=== PATIENT | female | born 1995 | race Hispanic/Latino ===

== ENCOUNTER 2018-06-02 10:09 | Emergency (ER) | payer BC, OTHER ==
[2018-06-02 10:40] LABS: #Basophils 0.1 thou/uL (0.0-0.2); #Eosinphils 0.1 thou/uL (0.0-0.7); #Lymphocytes 1.9 thou/uL (1.20-3.40); #Monocytes 0.4 thou/uL (0.11-0.59); #Neutrophils 4.7 thou/uL (1.40-6.50); %Basophils 0.7 % (0.0-1.0); %Eosinophils 0.9 % (0.0-10.0); %Lymphocytes 26.5 % (21.0-51.0); %Monocytes 5.7 % (0.0-10.0); %Neutrophils 66.2 % (42.0-75.0); Hemoglobin 13.9 g/dL (12.0-16.0); Mean Corpuscular HGB CONC 34.4 g/dL (32.0-36.0); Mean Corpuscular Volume 87.1 fL (78.0-98.0); Mean Platelet Volume 7.8 fL (7.4-10.4); Platelet Count 230 thou/uL (130-400); RBC Distribution Width 12.2 % (11.5-14.5); Red Blood Cell (RBC) Count 4.62 mill/uL (4.20-5.40); White Blood Cell (WBC) Count 7.1 thou/uL (4.8-10.8)
[2018-06-02 10:44] LABS: Bilirubin Negative (Negative); Blood, Urine Negative (Negative); Clarity CLOUDY (Clear); Glucose, Urine (Dipstick) Negative (Negative); Leukocyte Large (Negative); Nitrite Negative (Negative); Protein, Urine (Dipstick) Trace mg/dL (Neg-Trace); Specific Gravity, Urine 1.017 (1.002-1.036); pH, Urine 7.5 (5.0-9.0)
[2018-06-02 10:46] LABS: Bacteria/HPF 1+ HPF (None Seen); Hyaline Casts/LPF 0-3 HYALINE CAST LPF (0-3 Hyaline); WBC/HPF 21-50 HPF (0-3)
[2018-06-02] MEDS ORDERED: cefTRIAXone\\ROCEPHIN 1 GM VIAL ONE (11:22)
--- NOTE | 2018-06-02 12:01 | ULT ---
ULTRASOUND OB COMPLETE: History: Positive test. Left sided pelvic pain. Comparison: None. Technique: Real-time grayscale, color doppler, and spectral analysis of the gravid uterus was perform ed via transabdominal approach. FINDINGS: There is a single live intrauterine with average ultrasound age of 13 weeks 0 days with patricia e of delivery 12-08-18. The uterus measures 11.8 x 6.9 x 8.6 cm. Left ovary measures 4.1 x 2.0 x 2.1 c m. heart rate documented at 160 beats/minute. Placenta is anterior and the presentation is breech. Adequate amniotic fluid. Right ovary not seen. IMPRESSION: Single viable intrauterine with age average ultrasound of 13 weeks 0 day, estimated date of delivery 12-08-18. POS: [facility]
[2018-06-02 23:17] LABS: Chlamydia by PCR Not Detected (NotDetected); GC by PCR Not Detected (NotDetected)
== END 2018-06-02 12:48 | disposition home or self-care (01) ==
LOC: ERS 10:09
DX: O20.0 Threatened abortion (principal); Z3A.13 13 weeks gestation of pregnancy; O23.41 Unspecified infection of urinary tract in pregnancy, first trimester
CPT/HCPCS: 36415; 76805; 81003; 81015; 84702; 85025; 86900; 86901; 87086; 87480; 87491; 87510; 87591; 87660; 96374; J0696

== ENCOUNTER 2018-12-04 03:33 | Inpatient (IN) | payer BC, OTHER ==
[2018-12-04] MEDS ORDERED: Lidocaine 1% (PF) 30 ML VIAL SC PRN (04:28)
[2018-12-04] MEDS ORDERED: Misoprostol 200 MCG TAB PR PRN (04:28)
[2018-12-04] MEDS ORDERED: Ibuprofen 800 MG TAB PO PRN (04:28)
[2018-12-04] MEDS ORDERED: Promethazine HCl 25 MG/ML VIAL IM PRN ×2 (04:28→05:09)
[2018-12-04] MEDS ORDERED: Ondansetron PF 4 MG/2 ML Vial IVP PRN ×2 (04:28→05:09)
[2018-12-04] MEDS ORDERED: NS / Oxytocin 40 units/1000ml 1,000 ML IV PRN (04:28)
[2018-12-04] MEDS ORDERED: Methylergonovine 0.2 MG/ML VIAL IM PRN ×2 (04:28→08:44)
[2018-12-04] MEDS ORDERED: HYDROcodone/Acetaminophen 5/325 mg Tablet PO PRN ×4 (04:28→08:44)
[2018-12-04] MEDS ORDERED: Lactated Ringer's 1,000 ML IV SCH (04:30)
[2018-12-04] MEDS ORDERED: NS w/ Oxytocin 10 units 500 ML IV SCH (04:30)
[2018-12-04] MEDS ORDERED: Fentanyl 4 mcg/Bup 0.1% Cadd 100 ML ONE (04:35)
[2018-12-04 04:40] LABS: Hemoglobin 13.8 g/dL (12.0-16.0); Mean Corpuscular HGB CONC 34.5 g/dL (32.0-36.0); Mean Corpuscular Hemoglobin 31.9 pg (27.0-31.0); Mean Corpuscular Volume 92.6 fL (78.0-98.0); Mean Platelet Volume 9.6 fL (7.4-10.4); Platelet Count 168 thou/uL (130-400); RBC Distribution Width 12.3 % (11.5-14.5); Red Blood Cell (RBC) Count 4.32 mill/uL (4.20-5.40); White Blood Cell (WBC) Count 11.1 thou/uL (4.8-10.8)
[2018-12-04] MEDS ORDERED: diphenhydrAMINE 50 MG/ML VIAL IVP PRN (05:09)
[2018-12-04] MEDS ORDERED: Lactated Ringer's 500 ML IV PRN (05:09)
[2018-12-04] MEDS ORDERED: Eucerin (Mineral Oil/Petrolatum,White) 30 gm Jar TOP PRN (05:09)
[2018-12-04] MEDS ORDERED: Acetaminophen 325 MG TAB PO PRN (05:09)
[2018-12-04] MEDS ORDERED: ePHEDrine/0.9% NaCl/PF SYRINGE 50 mg/10 ml SLOW IVP PRN (05:09)
[2018-12-04] MEDS ORDERED: Naloxone HCl 0.4 mg/ml Vial IVP PRN ×2 (05:09)
[2018-12-04] MEDS ORDERED: Communication Order-Pharmacy FS SCH (05:15)
[2018-12-04] MEDS ORDERED: Fentanyl 4 mcg/Bupivacaine 0.1% Cassette 100 ML EPIDURAL SCH (05:15)
[2018-12-04 05:20] LABS: HBSAg Index 0.21 S/CO (0-0.99); Hep B Surf Ag Non-Reactive S/CO (NonReactive)
[2018-12-04 05:21] VITALS: BMI 34.4
[2018-12-04 05:25] LABS: Syphilis Antibody Nonreactive (Nonreactive); Syphilis Antibody Index 0.03 S/CO (<1.00 Non-Reactive)
--- NOTE | 2018-12-04 07:24 | PDOC.LDHP ---
Labor and Delivery H&P Chief complaint: contractions HPI: Started having contractions at midnight and arrived to the hospital around 3am. Reports good movement. Denies LOF, VB> Current gestational age (weeks): 38 Due date: 12/15/18 Dating criteria: first trimester ultrasound (S<D on first trimester us. dating based off us) Grav: 2 Para: 1 OB History Details: 2014 6.5 lbs Current complications: none Past Medical History: Hypothyroidism Current medications: pre- vitamins, other (levothyroxine 125mcg PO QD) Allergies/Adverse Reactions: Allergies Allergy/AdvReac Type Severity Reaction Status Date / Time No Known Allergies Allergy Verified 12/04/18 04:26 Social history: none - Physical Exam Vital signs reviewed and normal: yes General: NAD Heart: RRR Lungs: nonlabored breathing Abdomen: gravid FHT: category 1 [place] contractions every: q2mins - Vaginal Exam cm dilated: 7 Effacement: 100% Station: -1 - OB Labs Blood type: A RH: positive Antibody Screen: negative HIV: negative RPR: negative HEPSAg: negative 1 hour GCT: negative GBS: negative Urine drug screen: negative Rubella: immune - Assessment L&D Assessment: term patient in labor - Plan Plan: admit to L&D (anticipate epidural for pain management.)
--- NOTE | 2018-12-04 07:26 | PDOC.OPDEL ---
OB Operative/Delivery Note Delivery Dr/Surgeon: Emperatriz Miller Pre-Delivery Diagnosis: active labor Procedure/Post Delivery Dx: spontaneous vaginal delivery Weeks gestation: 38 Anesthesia: epidural - Findings A Sex: female Weight: 6 lb 5 oz - 1 min: 8 - 5 min: 9 - Additional Findings/Plan Placenta delivered: spontaneous Repaired Obstetrical Laceration: none Estimated blood loss: 200 Compilations/Other Findings: nuchal Post delivery plan: routine recovery
[2018-12-04] MEDS ORDERED: Ferrous Sulfate 325 MG TAB PO SCH ×2 (08:44→10:30)
[2018-12-04] MEDS ORDERED: Adacel (T-DAP) 0.5 ML SYRINGE IM ONE (08:44)
[2018-12-04] MEDS ORDERED: Misoprostol 200 MCG TAB VAG PRN (08:44)
[2018-12-04] MEDS ORDERED: Bisacodyl 10 MG SUPP PR PRN (08:44)
[2018-12-04] MEDS ORDERED: Varicella virus, LIVE 0.5 ML VIAL SC ONE (08:44)
[2018-12-04] MEDS ORDERED: NS / Oxytocin 40 units/1000ml 1,000 ML IV SCH (08:44)
[2018-12-04] MEDS ORDERED: Benzocaine/Menthol 20-0.5% 60 ML CAN TOP PRN (08:44)
[2018-12-04] MEDS ORDERED: Milk Of Magnesia 30 ML UDCUP PO PRN (08:44)
[2018-12-04] MEDS ORDERED: Measles/Mumps/Rubella 10 MCG/0.5 ML VIAL SC ONE (08:44)
[2018-12-04] MEDS: Docusate Calcium (SURFAK) 240 MG CAP PO SCH ×2 (11:38→21:35)
[2018-12-04] MEDS: Ibuprofen 800 MG TAB PO SCH ×2 (13:17→21:35)
[2018-12-04] MEDS: Ferrous Sulfate 325 MG TAB PO SCH (16:56)
[2018-12-04] MEDS ORDERED: Bupivacaine/Epinephrine 0.25% 30 ML VIAL ONE (18:00)
[2018-12-05] MEDS: Ibuprofen 800 MG TAB PO SCH (05:16)
[2018-12-05] MEDS ORDERED: Levothyroxine Sodium 125 MCG TAB PO SCH (06:00)
[2018-12-05 07:49] LABS: Mean Corpuscular HGB CONC 33.5 g/dL (32.0-36.0); Mean Corpuscular Hemoglobin 31.2 pg (27.0-31.0); Mean Platelet Volume 9.4 fL (7.4-10.4); Platelet Count 170 thou/uL (130-400); RBC Distribution Width 12.3 % (11.5-14.5); Red Blood Cell (RBC) Count 3.85 mill/uL (4.20-5.40); White Blood Cell (WBC) Count 8.1 thou/uL (4.8-10.8)
[2018-12-05] MEDS: Ferrous Sulfate 325 MG TAB PO SCH (07:53)
[2018-12-05 08:21] VITALS: BP 118/79; TEMP 98.4
[2018-12-05] MEDS: Docusate Calcium (SURFAK) 240 MG CAP PO SCH (09:54)
== END 2018-12-05 13:40 | disposition home or self-care (01) | DRG 807 ==
LOC: L&D/OP 03:33 → L&D 05:09 → 3SW 09:02
PROVIDERS: ADMIT Obstetrics & Gynecology; ATTEND Obstetrics & Gynecology
PROC: 10E0XZZ Delivery of Products of Conception, External Approach (ICD-10-PCS; principal; 2018-12-04)
DX: O69.1XX0 Labor and delivery complicated by cord around neck, with compression, not applicable or unspecified (principal); Z37.0 Single live birth; O99.284 Endocrine, nutritional and metabolic diseases complicating childbirth; E03.9 Hypothyroidism, unspecified; Z3A.38 38 weeks gestation of pregnancy
CPT/HCPCS: 36415; 51702; 85027; 86780; 86850; 86900; 86901; 87340; 99285; J2001